=== PATIENT | female | born 1975 | race African-American/Black ===

== ENCOUNTER 2017-01-21 15:39 | Emergency (ER) | payer OTHER ==
[2017-01-21 15:43] VITALS: BP 127/68; PULSE 60; TEMP 97.6; BMI 29.0
--- NOTE | 2017-01-21 16:50 | PDOC ---
History of Present Illness - General Chief Complaint: Injury Stated Complaint: FALL/ LT ANKLE PAIN Time Seen by Provider: 01/21/17 16:50 History Source: Patient Exam Limitations: No Limitations - History of Present Illness Initial Comments: 01/21/17 16:50 Past History - Past Medical History Allergies/Adverse Reactions: Allergies Allergy/AdvReac Type Severity Reaction Status Date / Time No Known Allergies Allergy Verified 01/21/17 15:41 Home Medications: Ambulatory Orders Albuterol 0.083% Nebulizer Nilam [Ventolin 0.083%] 1 neb NEB Q4H 12/14/15 Albuterol Sulfate Inhaler - [Ventolin Hfa Inhaler -] 1 - 2 inh PO Q4H 12/14/15 Fexofenadine HCl 60 mg PO ASDIR 12/14/15 Prednisone [Deltasone -] 40 mg PO DAILY #4 tablet 12/14/15 Asthma: Yes Cancer: No Cardiac Disorders: No Diabetes: No HTN: No Seizures: No Thyroid Disease: No - Psycho/Social/Smoking Cessation Hx Suicidal Ideation: No Smoking History: Never smoked Hx Alcohol Use: No Drug/Substance Use Hx: No Hx Substance Use Treatment: No *Physical Exam - Vital Signs Last Vital Signs Temp Pulse Resp BP Pulse Ox 97.6 F 60 18 127/68 100 01/21/17 15:41 01/21/17 15:41 01/21/17 15:41 01/21/17 15:41 01/21/17 15:41 *DC/Admit/Observation/Transfer Diagnosis at time of Disposition: lbme - Discharge Dispostion Disposition: LEFT BEFORE [facility] GIBOS[facility] - Referrals Referrals: Mendez Jeffers MD [Primary Care Provider] -
== END 2017-01-21 17:06 | disposition left against medical advice (07) ==
LOC: JERFT 15:39
DX: Z53.21 Procedure and treatment not carried out due to patient leaving prior to being seen by health care provider (principal)
CPT/HCPCS: 99281-25

== ENCOUNTER 2020-04-14 22:07 | Inpatient (IN) | payer OTHER ==
[2020-04-14] MEDS ORDERED: ALBUTEROL SO4 2.5/IPRATROPIUM 0.5 INH SOL 3 ML VIAL.NEB. NEB ONE ×4 (22:12→23:54)
[2020-04-14] MEDS ORDERED: ALBUTEROL SO4 0.083% IH SOL 2.5 MG/3 ML VIAL.NEB. NEB ONE ×2 (22:12)
[2020-04-14 22:18] VITALS: BMI 26.4
[2020-04-14] MEDS ORDERED: EPINEPHrine/PF 1 MG/1 ML (1:1,000) AMPULE ONE (22:23)
[2020-04-14] MEDS ORDERED: MAGNESIUM SULF 50% (8.12 MEQ/2 ML-1 GM VIAL) ONE (22:24)
[2020-04-14] MEDS ORDERED: DEXAMETHASONE SOD PHOSPHATE 10 MG/1 ML VIAL ONE (22:24)
[2020-04-14] MEDS ORDERED: ACETAMINOPHEN 1000 MG/100 ML VIAL (NON FORMULARY) IVPB ONE (22:28)
[2020-04-14] MEDS ORDERED: ACETAMINOPHEN INJECTION 100 ML IVPB ONE (22:28)
[2020-04-14 22:53] LABS: HEMATOCRIT 37.2 % (32.4-45.2); HEMOGLOBIN 12.3 GM/dL (10.7-15.3); MCH 30.9 pg (25.7-33.7); MCHC 32.9 g/dl (32.0-36.0); MEAN CELL VOLUME 93.8 fl (80-96); MEAN PLT VOLUME 8.7 fl (7.5-11.1); PLATELET COUNT 282 K/MM3 (134-434); RBC 3.97 M/mm3 (3.60-5.2); RDW 13.5 % (11.6-15.6); WHITE BLOOD COUNT 10.3 K/mm3 (4.0-10.0)
[2020-04-14 23:11] LABS: CHLORIDE 105 mmol/L (98-107); POTASSIUM 3.9 mmol/L (3.5-5.1); SODIUM 140 mmol/L (136-145)
[2020-04-14 23:14] LABS: CALCIUM 8.4 mg/dL (8.5-10.1)
[2020-04-14 23:16] LABS: ALBUMIN 3.7 g/dl (3.4-5.0); ANION GAP 7 MMOL/L (8-16); BLOOD UREA NITROGEN 9.5 mg/dL (7-18); CO2 28 mmol/L (21-32); GLUCOSE,RANDOM 111 mg/dL (74-106)
[2020-04-14 23:18] LABS: CREATININE 1.1 mg/dL (0.55-1.3); SGOT/AST 25 U/L (15-37); SGPT/ALT 37 U/L (13-61)
[2020-04-14 23:19] LABS: ALK PHOS 66 U/L (45-117)
[2020-04-14 23:21] LABS: BILIRUBIN,TOTAL 0.3 mg/dL (0.2-1); TOT PROT 7.4 g/dl (6.4-8.2)
[2020-04-14 23:24] LABS: N-TERMINAL BNP 26.6 pg/ml (5-125)
[2020-04-15 00:32] LABS: ARTERIAL BLD GAS O2 SATURATION 83.4 mmHg (95-98); ARTERIAL BLOOD GAS BASE EXCESS -1.8 mmol/L (-2-2); ARTERIAL BLOOD GAS PO2 49.7 mmHg (80-100); ARTERIAL BLOOD GAS pH 7.353 (7.350-7.450)
[2020-04-15 00:33] LABS: ALLENS TEST POSITIVE
[2020-04-15 00:34] LABS: VENT MODE S/T; VENT RATE 12
[2020-04-15] MEDS ORDERED: ALBUTEROL SO4 HFA INHALER IH PRN (03:01)
[2020-04-15] MEDS ORDERED: ALBUTEROL SO4 2.5/IPRATROPIUM 0.5 INH SOL 3 ML VIAL.NEB. NEB ONE ×3 (03:01→05:27)
[2020-04-15] MEDS ORDERED: ALBUTEROL SO4 2.5/IPRATROPIUM 0.5 INH SOL 3 ML VIAL.NEB. NEB PRN (08:13)
[2020-04-15] MEDS ORDERED: AZITHROMYCIN IVPB 500 MG in DEXTROSE 5%-WATER - 250 ML IVPB ONE (08:14)
[2020-04-15] MEDS ORDERED: CEFTRIAXONE 1 GM/50 ML BAG ONE (08:31)
[2020-04-15] MEDS ORDERED: AZITHROMYCIN IVPB 500 MG/250 ML BAG IVPB ONE ×2 (08:32→09:12)
[2020-04-15] MEDS: ENOXAPARIN NA (PORCINE) 40 MG/0.4 ML DISP.SYRIN SQ SCH (09:28)
[2020-04-15] MEDS: CEFTRIAXONE 1 GM in DEXTROSE 5%-WATER - 50 ML IVPB SCH (09:32)
[2020-04-15] MEDS ORDERED: methylPREDNISolone NA SUCC 40 MG/1 ML VIAL IVPUSH SCH (10:00)
[2020-04-15] MEDS ORDERED: methylPREDNISolone NA SUCC 125 MG/2 ML VIAL ONE (13:34)
[2020-04-15] MEDS: methylPREDNISolone NA SUCC 40 MG/1 ML VIAL IVPUSH SCH ×2 (13:36→18:01)
[2020-04-15] MEDS ORDERED: ALBUTEROL SO4 HFA INHALER IH ONE (13:39)
[2020-04-15] MEDS: ALBUTEROL SO4 2.5/IPRATROPIUM 0.5 INH SOL 3 ML VIAL.NEB. NEB SCH (20:40)
[2020-04-16] MEDS: methylPREDNISolone NA SUCC 40 MG/1 ML VIAL IVPUSH SCH ×4 (02:22→18:07)
[2020-04-16 07:27] LABS: BASO % 0.1 % (0-2.0); HEMATOCRIT 37.2 % (32.4-45.2); HEMOGLOBIN 11.9 GM/dL (10.7-15.3); LYMPH % 6.5 % (8-40); MCH 30.5 pg (25.7-33.7); MCHC 32.2 g/dl (32.0-36.0); MEAN CELL VOLUME 94.8 fl (80-96); MEAN PLT VOLUME 9.1 fl (7.5-11.1); MONO % 2.5 % (3.8-10.2); NEUT % 90.9 % (42.8-82.8); PLATELET COUNT 288 K/MM3 (134-434); RBC 3.92 M/mm3 (3.60-5.2); WHITE BLOOD COUNT 22.2 K/mm3 (4.0-10.0)
[2020-04-16 07:44] LABS: POTASSIUM 4.2 mmol/L (3.5-5.1)
[2020-04-16 07:58] LABS: ALBUMIN 3.5 g/dl (3.4-5.0); BLOOD UREA NITROGEN 13.1 mg/dL (7-18); CALCIUM 8.7 mg/dL (8.5-10.1)
[2020-04-16 08:01] LABS: CREATININE 0.9 mg/dL (0.55-1.3)
[2020-04-16 08:02] LABS: BILIRUBIN,TOTAL 0.5 mg/dL (0.2-1); TOT PROT 7.1 g/dl (6.4-8.2)
[2020-04-16] MEDS: ALBUTEROL SO4 2.5/IPRATROPIUM 0.5 INH SOL 3 ML VIAL.NEB. NEB SCH ×4 (08:17→20:40)
[2020-04-16] MEDS ORDERED: DEXTROSE 5%-WATER - 50 ML IVPB ONE (09:01)
[2020-04-16] MEDS ORDERED: cefTRIAXone SODIUM 1 GM VIAL ONE (09:01)
[2020-04-16] MEDS: ENOXAPARIN NA (PORCINE) 40 MG/0.4 ML DISP.SYRIN SQ SCH (10:00)
[2020-04-16] MEDS: CEFTRIAXONE 1 GM in DEXTROSE 5%-WATER - 50 ML IVPB SCH (10:00)
[2020-04-16 10:21] LABS: ANISOCYTOSIS 0; MACROCYTOSIS 0; PLATELET ESTIMATE NORMAL
[2020-04-16] MEDS ORDERED: BUDESONIDE/FORMETEROL FUMARATE 160/4.5 mcg INHALER IH SCH (22:00)
[2020-04-17] MEDS: methylPREDNISolone NA SUCC 40 MG/1 ML VIAL IVPUSH SCH ×4 (02:01→18:08)
[2020-04-17] MEDS: ALBUTEROL SO4 2.5/IPRATROPIUM 0.5 INH SOL 3 ML VIAL.NEB. NEB SCH ×4 (08:16→20:25)
[2020-04-17 08:24] LABS: POTASSIUM 4.3 mmol/L (3.5-5.1)
[2020-04-17 08:25] LABS: BASO % 0.2 % (0-2.0); HEMATOCRIT 37.9 % (32.4-45.2); HEMOGLOBIN 12.3 GM/dL (10.7-15.3); LYMPH % 7.4 % (8-40); MCH 30.8 pg (25.7-33.7); MCHC 32.4 g/dl (32.0-36.0); MEAN CELL VOLUME 95.1 fl (80-96); MEAN PLT VOLUME 9.3 fl (7.5-11.1); MONO % 2.8 % (3.8-10.2); NEUT % 89.6 % (42.8-82.8); PLATELET COUNT 303 K/MM3 (134-434); RBC 3.99 M/mm3 (3.60-5.2); RDW 14.1 % (11.6-15.6); WHITE BLOOD COUNT 20.7 K/mm3 (4.0-10.0)
[2020-04-17 08:31] LABS: CALCIUM 8.9 mg/dL (8.5-10.1)
[2020-04-17 08:32] LABS: ALBUMIN 3.6 g/dl (3.4-5.0); BLOOD UREA NITROGEN 17.1 mg/dL (7-18)
[2020-04-17 08:37] LABS: BILIRUBIN,TOTAL 0.3 mg/dL (0.2-1); TOT PROT 7.4 g/dl (6.4-8.2)
[2020-04-17] MEDS ORDERED: cefTRIAXone SODIUM 1 GM VIAL ONE (09:03)
[2020-04-17] MEDS ORDERED: DEXTROSE 5%-WATER - 50 ML IVPB ONE (09:03)
[2020-04-17] MEDS: CEFTRIAXONE 1 GM in DEXTROSE 5%-WATER - 50 ML IVPB SCH (09:30)
[2020-04-17] MEDS: ENOXAPARIN NA (PORCINE) 40 MG/0.4 ML DISP.SYRIN SQ SCH (09:31)
[2020-04-17] MEDS: BUDESONIDE/FORMETEROL FUMARATE 160/4.5 mcg INHALER IH SCH ×3 (09:32→21:28)
[2020-04-17 10:10] LABS: ANISOCYTOSIS 0; MACROCYTOSIS 0; PLATELET ESTIMATE NORMAL
[2020-04-18] MEDS: methylPREDNISolone NA SUCC 40 MG/1 ML VIAL IVPUSH SCH ×2 (02:33→10:18)
[2020-04-18] MEDS: ALBUTEROL SO4 2.5/IPRATROPIUM 0.5 INH SOL 3 ML VIAL.NEB. NEB SCH ×4 (08:20→20:10)
[2020-04-18] MEDS ORDERED: cefTRIAXone SODIUM 1 GM VIAL ONE (09:30)
[2020-04-18] MEDS ORDERED: DEXTROSE 5%-WATER - 50 ML IVPB ONE (09:30)
[2020-04-18] MEDS: CEFTRIAXONE 1 GM in DEXTROSE 5%-WATER - 50 ML IVPB SCH (10:18)
[2020-04-18] MEDS: BUDESONIDE/FORMETEROL FUMARATE 160/4.5 mcg INHALER IH SCH ×2 (10:18→21:40)
[2020-04-18] MEDS: ENOXAPARIN NA (PORCINE) 40 MG/0.4 ML DISP.SYRIN SQ SCH (10:23)
[2020-04-18] MEDS ORDERED: methylPREDNISolone NA SUCC 40 MG/1 ML VIAL IVPUSH SCH (22:00)
[2020-04-19 07:43] LABS: BASO % 0.2 % (0-2.0); EOS % 0.5 % (0-4.5); HEMATOCRIT 37.2 % (32.4-45.2); HEMOGLOBIN 11.8 GM/dL (10.7-15.3); LYMPH % 29.8 % (8-40); MCH 30.1 pg (25.7-33.7); MCHC 31.6 g/dl (32.0-36.0); MEAN CELL VOLUME 95.3 fl (80-96); MEAN PLT VOLUME 8.8 fl (7.5-11.1); MONO % 7.4 % (3.8-10.2); NEUT % 62.1 % (42.8-82.8); PLATELET COUNT 278 K/MM3 (134-434); RDW 13.9 % (11.6-15.6); WHITE BLOOD COUNT 12.7 K/mm3 (4.0-10.0)
[2020-04-19] MEDS: ALBUTEROL SO4 2.5/IPRATROPIUM 0.5 INH SOL 3 ML VIAL.NEB. NEB SCH (08:18)
[2020-04-19] MEDS ORDERED: predniSONE 20 MG TABLET (UD) PO SCH (10:00)
[2020-04-19] MEDS ORDERED: cefTRIAXone SODIUM 1 GM VIAL ONE (10:14)
[2020-04-19] MEDS ORDERED: DEXTROSE 5%-WATER - 50 ML IVPB ONE (10:14)
[2020-04-19] MEDS: CEFTRIAXONE 1 GM in DEXTROSE 5%-WATER - 50 ML IVPB SCH (10:34)
[2020-04-19] MEDS: BUDESONIDE/FORMETEROL FUMARATE 160/4.5 mcg INHALER IH SCH (10:35)
[2020-04-19] MEDS: ENOXAPARIN NA (PORCINE) 40 MG/0.4 ML DISP.SYRIN SQ SCH (10:37)
[2020-04-19 10:44] LABS: ANISOCYTOSIS 0; MACROCYTOSIS 0; PLATELET ESTIMATE NORMAL
[2020-04-19 11:43] VITALS: BP 122/67; PULSE 76; TEMP 97.5
== END 2020-04-19 15:06 | disposition home or self-care (01) | DRG 141 ==
LOC: JER 22:07 → UNDOADMIN 22:10 → JERBED 22:10 → J4W 04-15 14:12
PROVIDERS: ADMIT Internal Medicine; ATTEND Internal Medicine
PROC: 5A09557 Assistance with Respiratory Ventilation, Greater than 96 Consecutive Hours, Continuous Positive Airway Pressure (ICD-10-PCS; principal; 2020-04-14)
DX: J45.901 Unspecified asthma with (acute) exacerbation (principal); D72.829 Elevated white blood cell count, unspecified; J96.01 Acute respiratory failure with hypoxia
CPT/HCPCS: 36415; 36600; 71045-TC-FY; 80053; 82803; 83880; 84484; 84703; 85025; 85027; 93005; 93010; 94150; 94640; 94660; 99285-25; C9803; J0131; U0003

== ENCOUNTER 2020-09-16 12:13 | Emergency (ER) | payer OTHER ==
[2020-09-16 12:23] VITALS: BP 140/74; PULSE 67; TEMP 98.3; BMI 27.3
[2020-09-16] MEDS ORDERED: ONDANSETRON *ODT* 4 MG TABLET ONE (12:34)
[2020-09-16] MEDS ORDERED: SODIUM CHLORIDE 1,000 ML IV STA (12:42)
[2020-09-16] MEDS ORDERED: METOCLOPRAMIDE HCL INJECTION 10 MG/2 ML VIAL IVPB ONE (12:42)
[2020-09-16] MEDS ORDERED: MECLIZINE HCL 25 MG TABLET (FP) PO ONE (12:42)
[2020-09-16] MEDS ORDERED: ACETAMINOPHEN 1000 MG/100 ML VIAL (NON FORMULARY) IVPB ONE (12:43)
[2020-09-16] MEDS ORDERED: METOCLOPRAMIDE HCL INJECTION 10 MG/2 ML VIAL ONE (12:54)
[2020-09-16] MEDS ORDERED: ACETAMINOPHEN INJECTION 100 ML IVPB ONE (12:54)
[2020-09-16] MEDS ORDERED: MECLIZINE HCL 25 MG TABLET (FP) ONE (12:54)
[2020-09-16 13:45] LABS: BASO % 0.4 % (0-2.0); EOS % 2.8 % (0-4.5); HEMATOCRIT 41.4 % (32.4-45.2); HEMOGLOBIN 14.2 GM/dL (10.7-15.3); LYMPH % 31.9 % (8-40); MCH 32.1 pg (25.7-33.7); MCHC 34.2 g/dl (32.0-36.0); MEAN CELL VOLUME 93.7 fl (80-96); MONO % 5.7 % (3.8-10.2); NEUT % 59.2 % (42.8-82.8); PLATELET COUNT 287 K/MM3 (134-434); RBC 4.43 M/mm3 (3.60-5.2); RDW 13.8 % (11.6-15.6); WHITE BLOOD COUNT 7.3 K/mm3 (4.0-10.0)
[2020-09-16 13:47] LABS: PH,URINE 7.5 (5.0-8.0); URINE APPEARANCE CLEAR; URINE BILIRUBIN NEGATIVE (NEGATIVE); URINE COLOR YELLOW; URINE GLUCOSE (UA) NEGATIVE (NEGATIVE); URINE KETONE NEGATIVE (NEGATIVE); URINE LEUK ESTERASE NEGATIVE (NEGATIVE); URINE NITRITE NEGATIVE (NEGATIVE); URINE PROTEIN NEGATIVE (NEGATIVE); URINE UROBILINOGEN 0.2 mg/dL (0.2-1.0)
[2020-09-16 13:57] LABS: CALCIUM 9.2 mg/dL (8.5-10.1)
[2020-09-16 13:58] LABS: BLOOD UREA NITROGEN 11.8 mg/dL (7-18)
[2020-09-16 14:01] LABS: CREATININE 0.9 mg/dL (0.55-1.3)
[2020-09-16 14:02] LABS: BILIRUBIN,TOTAL 0.4 mg/dL (0.2-1); TOT PROT 7.8 g/dl (6.4-8.2)
== END 2020-09-16 15:14 | disposition home or self-care (01) ==
LOC: JER 12:13
PROC: 3E0333Z Introduction of Anti-inflammatory into Peripheral Vein, Percutaneous Approach (ICD-10-PCS; principal; 2020-09-16)
PROC: 3E033GC Introduction of Other Therapeutic Substance into Peripheral Vein, Percutaneous Approach (ICD-10-PCS; 2020-09-16)
PROC: 3E0337Z Introduction of Electrolytic and Water Balance Substance into Peripheral Vein, Percutaneous Approach (ICD-10-PCS; 2020-09-16)
DX: R42 Dizziness and giddiness (principal)
CPT/HCPCS: 36415; 70450-TC; 80053; 81003; 84703; 85025; 87086; 99284-25; J0131

== ENCOUNTER 2023-04-18 14:18 | Emergency (ER) | payer OTHER ==
[2023-04-18 14:50] VITALS: RESP 16; BMI 27.3
[2023-04-18] MEDS ORDERED: ACETAMINOPHEN 325 MG TABLET (FP) PO ONE (16:29)
[2023-04-18] MEDS ORDERED: FAMOTIDINE 10 MG TABLET PO ONE (16:29)
[2023-04-18] MEDS ORDERED: FAMOTIDINE 10 MG TABLET ONE (17:12)
[2023-04-18] MEDS ORDERED: ACETAMINOPHEN 325 MG TABLET (FP) ONE (17:12)
[2023-04-18 17:25] LABS: BASO % 0.7 % (0-2.0); HEMATOCRIT 37.8 % (32.4-45.2); HEMOGLOBIN 12.5 GM/dL (10.7-15.3); LYMPH % 42.5 % (8-40); MCH 30.7 pg (25.7-33.7); MCHC 33.1 g/dl (32.0-36.0); MEAN CELL VOLUME 92.7 fl (80-96); MEAN PLT VOLUME 8.4 fl (7.5-11.1); MONO % 6.2 % (3.8-10.2); NEUT % 42.6 % (42.8-82.8); PLATELET COUNT 310 10^3/uL (134-434); RBC 4.08 M/mm3 (3.60-5.2); RDW 14.2 % (11.6-15.6); WHITE BLOOD COUNT 7.2 K/mm3 (4.0-10.0)
[2023-04-18 17:46] LABS: POTASSIUM 4.3 mmol/L (3.5-5.1)
[2023-04-18 17:49] LABS: ALBUMIN 3.8 g/dl (3.4-5.0); BLOOD UREA NITROGEN 9.7 mg/dL (7-18); CALCIUM 8.9 mg/dL (8.5-10.1)
[2023-04-18 17:54] LABS: BILIRUBIN,TOTAL 0.2 mg/dL (0.2-1); INR 0.96 (0.83-1.09); PROTHROMBIN TIME (PATIENT) 11.1 SEC (9.7-13.0); TOT PROT 7.8 g/dl (6.4-8.2)
[2023-04-18 17:57] LABS: ACTIVATED PTT 31.3 SECONDS (25.2-36.5)
[2023-04-18 20:37] VITALS: BP 145/87; PULSE 63; TEMP 98.6
== END 2023-04-18 20:40 | disposition home or self-care (01) ==
LOC: JER 14:18
DX: R07.9 Chest pain, unspecified (principal); U07.1 COVID-19; R06.02 Shortness of breath
CPT/HCPCS: 0241U-QW; 36415; 71046-TC-FY; 71275-TC; 80053; 82550; 83690; 84484; 84703; 85025; 85379; 85610; 85730; 93005; 93010; 99285-25; Q9967